=== PATIENT | male | born 1945 | race Asian ===

== ENCOUNTER 2019-03-23 14:47 | Emergency (ER) | payer OTHER, MEDICAID ==
[~2019-03-23] VITALS: Ht 152.4 cm; Wt 65.8 kg
[2019-03-23 14:52] VITALS: Ht 152.4 cm; Wt 65.8 kg
[2019-03-23 16:05] VITALS: BP 146/82
== END 2019-03-23 16:05 | disposition home or self-care (01) ==
LOC: EDBD 14:47 → ED 14:47
DX: J44.1 Chronic obstructive pulmonary disease with (acute) exacerbation (principal)
CPT/HCPCS: J7512; J7613; J7644; Q0092

== ENCOUNTER 2020-01-03 11:55 | Emergency (ER) | payer OTHER, MEDICAID, SELFPAY ==
[~2020-01-03] VITALS: Ht 160 cm; Wt 68.0 kg
[2020-01-03 11:59] VITALS: Ht 160 cm; Wt 68.0 kg
[2020-01-03 13:49] VITALS: BP 122/71
[2020-01-04] MEDS ORDERED: ZESTRIL2.5 MG (21:37)
[2020-01-04] MEDS ORDERED: PANTOPRAZOLE SO40 M1 PO (21:38)
[2020-01-04] MEDS ORDERED: FINASTERIDE1 MG PO (21:38)
[2020-01-04] MEDS ORDERED: LIPI10 PO (21:38)
[2020-01-04] MEDS ORDERED: APAP325 MG PO (21:39)
== END 2020-01-03 13:50 | disposition home or self-care (01) ==
LOC: ED 11:55
DX: U07.1 COVID-19 (principal)
CPT/HCPCS: U0003-CS

== ENCOUNTER 2020-07-11 08:15 | Emergency (ER) | payer OTHER, MEDICAID ==
[~2020-07-11] VITALS: Ht 157.5 cm; Wt 64.9 kg
[~2020-07-11 08:15] MED LIST: ACCU-CHEK GUID1 EAC1 MC; ALCOHOL PREP70% TOP; APAP325 MG PO; BG FS; BLOOD LANCETS1 EACH TOP; DECADRON6 MG PO; ECO81 PO; FINASTERIDE1 MG PO; HUMULIN R100 U/1 M1 SC; LIPI10 PO; MUCINEX600 MG PO; PANTOPRAZOLE SO40 M1 PO; ZESTRIL2.5 MG
[2020-07-11 08:30] VITALS: Ht 157.5 cm; Wt 64.9 kg
[2020-07-11 10:06] LABS: CALCIUM 8.7 mg/dL (8.5-10.1); CARBON DIOXIDE 25.1 mmol/L (21-32); CHLORIDE SERUM 107 mmol/L (98-107); CREATININE SERUM 1.1 mg/dL (0.7-1.3); GLUCOSE SERUM 100 mg/dL (74-106); POTASSIUM SERUM 4.2 mmol/L (3.5-5.1); SODIUM SERUM 139 mmol/L (136-145)
[2020-07-11 10:20] LABS: BASOPHIL % 0.8 % (0.2-1.5); PLATELET COUNT 156 x10^3mcL (152-348)
[2020-07-11 10:26] LABS: RED CELL DISTRIBUTION WIDTH 14.7 % (12.1-16.2)
[2020-07-11] MEDS ORDERED: GOOD NEIGHBOR M25 MG PO (12:37)
[2020-07-11 12:45] VITALS: BP 119/61
== END 2020-07-11 13:00 | disposition home or self-care (01) ==
LOC: ED 08:15
PROVIDERS: Emergency Medicine
DX: H81.399 Other peripheral vertigo, unspecified ear (principal); R51.9 Headache, unspecified
CPT/HCPCS: J8597

== ENCOUNTER 2020-07-12 19:20 | Emergency (ER) | payer OTHER, MEDICAID ==
[~2020-07-12] VITALS: Ht 157.5 cm; Wt 64.9 kg
[~2020-07-12 19:20] MED LIST changes: +GOOD NEIGHBOR M25 MG PO
[2020-07-12 19:27] VITALS: Ht 157.5 cm; Wt 64.9 kg
[2020-07-12 20:40] VITALS: BP 117/67
== END 2020-07-12 20:50 | disposition home or self-care (01) ==
LOC: ED 19:20
DX: H81.10 Benign paroxysmal vertigo, unspecified ear (principal)
CPT/HCPCS: J2765; J7030